=== PATIENT | male | born 1980 | race Caucasian/White ===

== ENCOUNTER 2024-12-19 17:50 | Emergency (ER) | payer MEDICAID ==
[~2024-12-19] VITALS: Ht 180.3 cm; Wt 91.0 kg
[2024-12-19 17:55] VITALS: BP 126/78; PULSE 120; RESP 16; TEMP 37.4; O2SAT 99
[2024-12-19] MEDS: KETOROLAC 30MG/ML VIAL IV ONE (18:50)
[2024-12-19] MEDS: ONDANSETRON HCL 4MG/2ML INJ IV ONE (18:50)
[2024-12-19] MEDS: ACETAMINOPHEN 325MG TABLET PO ONE (18:50)
[2024-12-19] MEDS: SODIUM CHLORIDE 0.9% 1,000 ML IV ONE ×2 (18:51→19:43)
[2024-12-19 19:06] LABS: CLARITY URINE TURBID (CLEAR); COLOR URINE ORANGE (YELLOW); GLUCOSE URINE NEGATIVE (NEGATIVE); KETONES URINE NEGATIVE (NEGATIVE); LEUKOCYTE ESTERASE URINE 3+ (NEGATIVE); NITRITE URINE NEGATIVE (NEGATIVE); OCCULT BLOOD URINE 3+ (NEGATIVE); PH URINE 5.5 (4.5-8.0); PROTEIN URINE 2+ (NEGATIVE); SPECIFIC GRAVITY URINE 1.014 (1.005-1.030)
[2024-12-19 19:18] LABS: CHLORIDE 101 mEq/L (98-107); SODIUM 134 mEq/L (136-145)
[2024-12-19 19:19] LABS: CALCIUM 8.4 mg/dL (8.7-10.4); CARBON DIOXIDE 26 mEq/L (21-32)
[2024-12-19 19:21] LABS: HEMATOCRIT. 38.1 % (42.0-52.0); HEMOGLOBIN. 12.4 g/dL (14.0-18.0); MEAN CORPUSCULAR HEMOGLOBIN 26.4 pg (28.0-32.0); MEAN CORPUSCULAR HGB CONC 32.4 g/dL (31.0-37.0); MEAN CORPUSCULAR VOLUME 81.4 fL (80.0-94.0); PLATELET 178 x1000/uL (130-400); RED BLOOD CELL COUNT 4.68 mill/uL (4.7-6.1); RED CELL DISTRIBUTION WIDTH 17.9 % (11.6-14.6); WHITE BLOOD COUNT 7.5 x1000/uL (4.5-11.0)
[2024-12-19 19:22] LABS: DIFFERENTIAL COMMENT 1
[2024-12-19 19:24] LABS: CREATININE 2.3 mg/dL (0.6-1.3); GLUCOSE 94 mg/dL (70-105); UREA NITROGEN BLOOD 38 mg/dL (9-23)
[2024-12-19 19:26] LABS: ALANINE AMINOTRANSFERASE 48 IU/L (10-49); ALBUMIN 3.7 g/dL (3.2-4.8); ASPARTATE AMINOTRANSFERASE 77 IU/L (<34); BILIRUBIN DIRECT 0.2 mg/dL (<=3.0); BILIRUBIN TOTAL 0.6 mg/dL (0.1-1.0); INR 1.2; PROTHROMBIN TIME 12.3 sec (9.6-11.0)
[2024-12-19 19:27] LABS: PROTEIN TOTAL 8.1 g/dL (6.0-8.3)
[2024-12-19 20:27] LABS: INFLUENZA TYPE A Presumptive Negative (Pres. Neg.); RESPIRATORY SYNCYTIAL VIRUS Not Detected (Not Detectd)
[2024-12-19 20:28] LABS: INFLUENZA TYPE B Presumptive Negative (Pres. Neg.)
[2024-12-19] MEDS ORDERED: ONDA-239 PO (20:37)
[2024-12-19 20:40] LABS: BACTERIA URINE 3+; RBC URINE TNTC /hpf (0-2); SQUAMOUS EPITHELIAL CELL URINE 1+ /lpf (RARE/1+)
[2024-12-19 20:41] LABS: WBC URINE TNTC /hpf (0-2)
[2024-12-19 22:02] LABS: ANISOCYTOSIS 1+; ATYPICAL LYMPHOCYTES 1; PLATELET ESTIMATE NORMAL
== END 2024-12-19 21:04 | disposition home or self-care (01) ==
LOC: ER 17:50
DX: N17.9 Acute kidney failure, unspecified (principal); B34.9 Viral infection, unspecified; Z20.822 Contact with and (suspected) exposure to COVID-19
CPT/HCPCS: 99284; 96374; 96361; 71045; 96375; 87426; 80076; 80048; 81003; 85025; 85610; 87420; 87086; 87186; 87804 ×2; 87077; 36415; J1885; J2405; J7030

== ENCOUNTER 2025-09-03 18:52 | Emergency (ER) | payer MEDICAID ==
[~2025-09-03] VITALS: Ht 182.9 cm; Wt 125.0 kg
[~2025-09-03 18:52] MED LIST: ONDA-239 PO
[2025-09-03 18:55] VITALS: TEMP 36.7; O2SAT 99
[2025-09-03] MEDS ORDERED: P20 MT (21:54)
[2025-09-03] MEDS: PREDNISONE 20MG TABLET PO ONE (22:03)
[2025-09-03 22:04] VITALS: BP 167/97; PULSE 89; RESP 20; O2SAT 100
== END 2025-09-03 22:34 | disposition home or self-care (01) ==
LOC: ER 18:52
DX: L30.9 Dermatitis, unspecified (principal)
CPT/HCPCS: 99283; J7512; Z7610